=== PATIENT | female | born 1970 | race Caucasian/White ===

== ENCOUNTER 2022-09-18 11:18 | Emergency (ER) | payer BC ==
[2022-09-18 12:05] VITALS: BP 119/56
--- NOTE | 2022-09-18 12:25 | XRAY Report ---
PROCEDURE: Ankle 3 View LT INDICATIONS: Trauma TECHNIQUE: 3 views of the ankle were acquired. COMPARISON: None. FINDINGS: Bones: No fractures or dislocations. Ankle mortise is normally aligned. No suspicious bony lesions . Soft tissues: No tibiotalar joint effusion. Achilles tendon appears normal. IMPRESSION: No acute bony abnormality. Reviewed by: Rudy Quintero on 09/18/2022 11:23 AM MORGAN Approved by: Rudy Quintero on 09/18/2022 11:23 AM MORGAN Station ID: [id number]
--- NOTE | 2022-09-18 13:35 | ED Physician Documentation ---
PD HPI LOWER EXT INJURY - Stated complaint Stated Complaint: LT ANKLE PX - Chief complaint Chief Complaint: Trauma Ext - History obtained from History obtained from: Patient - Additional information Additional information: The patient comes to the emergency department chief complaint of left ankle injury this morning while running. She states she was running on a trail and tripped over a root, twisting her ankle. She states she immediately felt pain and noticed swelling in the ankle over the lateral aspect. She denies any numbness or tingling in the foot. No other injuries. She has never injured the ankle before. PD PAST MEDICAL HISTORY - Past Medical History Past Medical History: No Cardiovascular: None Respiratory: None Neuro: None Endocrine/Autoimmune: None GI: None POWER ENGINEER: None : None HEENT: None Psych: None Musculoskeletal: None Derm: None - Past Surgical History Past Surgical History: No - Present Medications Home Medications: Ambulatory Orders Medication Instructions Recorded Confirmed No Known Home Medications 09/18/22 09/18/22 - Allergies Allergies/Adverse Reactions: Allergies Allergy/AdvReac Type Severity Reaction Status Date / Time No Known Drug Allergies Allergy Verified 09/18/22 11:50 - Social History Does the pt smoke?: No Smoking Status: Never smoker Does the pt drink ETOH?: Yes ETOH Use: Wine Does the pt have substance abuse?: No - Immunizations Immunizations are current?: No Immunizations: TDAP >10years/unknown PD ED PE NORMAL - Vitals Vital signs reviewed: Yes - General General: Alert and oriented X 3, No acute distress, Well developed/nourished - HEENT HEENT: Atraumatic, PERRL, EOMI, Moist mucous membranes - Neck Neck: Supple, no meningeal sign - Cardiac Cardiac: Strong equal pulses - Respiratory Respiratory: No respiratory distress - Derm Derm: Normal color, Warm and dry, No rash - Extremities Extremities: No deformity, Other (Edema and tenderness over left lateral malleolus and anterior talofibular ligament distribution. No deformity. Limited range of motion secondary to pain.) - Neuro Neuro: Alert and oriented X 3 - Psych Psych: Normal mood, Normal affect Results - Vitals Vitals: Vital Signs - 24 hr 09/18/22 11:51 Temperature 36.5 C Heart Rate 70 Respiratory 16 Rate Blood Pressure 119/56 L O2 Saturation 100 Oxygen O2 Source Room air - Rads (name of study) Left ankle x-ray Relevant Findings:: Final report received, See rad report (Negative) Procedures - Splint (location) - Minor Left ankle Splint applied by: Tech Type of splint: Ankle airsplint Other: Patient tolerated well, No complications, Neurovascular intact, Crutches provided PD Medical Decision Making - ED course Complexity details: reviewed results, re-evaluated patient, considered differential, d/w patient ED course: The patient's x-ray series was negative. She was placed in a Velcro air splint. We have discussed symptomatic management at home and follow-up as needed. We discussed the usual indications for return. Departure - Departure Disposition: Home, Self Care Clinical Impression: Left ankle sprain Qualifiers: Encounter type: initial encounter Involved ligament of ankle: unspecified ligament Qualified Code(s): S93.402A - Sprain of unspecified ligament of left ankle, initial encounter Condition: Stable Instructions: ED Sprain Ankle Comments: Your x-ray series looks good. You have most likely sprained your left ankle which is caused the pain and swelling. Please follow-up with your doctor if you wish to pursue MRI. Otherwise, your ankle will be expected to heal on its own over the next several weeks. You may use the crutches and splint as long as you need for stability and comfort. You should not do more than walking until you can walk without pain. After this, you may carefully reintroduce jogging and increase your activity level and impact level as tolerated, as long as you are pain-free. You may take ibuprofen and Tylenol as needed for discomfort. You may apply an ice pack and elevate your foot whenever you are down, to help with swelling.
== END 2022-09-18 14:00 | disposition home or self-care (01) ==
LOC: ED 11:18
DX: S93.402A Sprain of unspecified ligament of left ankle, initial encounter (principal); X50.1XXA Overexertion from prolonged static or awkward postures, initial encounter; Y93.02 Activity, running; Y92.89 Other specified places as the place of occurrence of the external cause
CPT/HCPCS: 99283